=== PATIENT | male | born 1950 | race Caucasian/White ===

== ENCOUNTER 2016-08-02 14:58 | Inpatient (IN) | payer OTHER ==
[~2016-08-02] VITALS: Ht 172.7 cm; Wt 85.7 kg
[2016-08-02 15:45] VITALS: BP 110/69
[2016-08-02] MEDS ORDERED: ONDANSETRON PF 4 MG/2 ML VIAL. IV PRN (17:00)
[2016-08-02] MEDS ORDERED: LORazepam 0.5 MG TABLET PO PRN (17:00)
[2016-08-02 17:47] LABS: BASO # 0.1 x10^3/uL (0.0-0.2); BASO % 1 % (0-3); EOS % 7 % (0-3); HEMATOCRIT 35.9 % (39.0-53.0); HEMOGLOBIN 11.6 g/dL (13.0-17.5); LYMPH # 0.9 x10^3/uL (1.0-4.8); LYMPH % 13 % (24-48); MEAN CORPUSCULAR HEMOGLOBIN 28 pg (25-35); MEAN CORPUSCULAR HGB CONC 32 g/dL (31-37); MEAN CORPUSCULAR VOLUME 86 fL (79-100); MONO % 16 % (0-9); NEUT % 63 % (31-73); PLATELET COUNT 227 x10^3/uL (140-400); RED BLOOD COUNT 4.19 x10^6/uL (4.30-5.70); RED CELL DISTRIBUTION WIDTH 16.4 % (11.5-14.5); WHITE BLOOD COUNT 7.1 x10^3/uL (4.0-11.0)
[2016-08-02 17:59] LABS: CALCIUM 8.9 mg/dL (8.5-10.1); GFR 74.5; POTASSIUM 3.4 mmol/L (3.5-5.1)
[2016-08-02] MEDS: POTASSIUM CL 20MEQ-0.45% NACL 1,000 ML IV SCH (18:12)
[2016-08-02] MEDS: CARVEDILOL 6.25 MG TABLET. PO SCH (18:13)
[2016-08-02 19:00] VITALS: BP 107/67
[2016-08-02] MEDS ORDERED: ALBUTEROL SULFATE 2.5 MG/3 ML NEBU. NEB SCH (20:00)
[2016-08-02] MEDS: ATORVASTATIN CALCIUM 10 MG TABLET. PO SCH (21:15)
[2016-08-02] MEDS: buPROPion 100 MG TABLET PO SCH (21:16)
[2016-08-02 22:55] VITALS: BP 102/70
[2016-08-03 03:09] VITALS: BP 117/69
[2016-08-03 03:20] LABS: BILIRUBIN,URINE MODERATE (NEG); GLUCOSE,URINE NEGATIVE (NEG); NITRITE,URINE NEGATIVE (NEG); PROTEIN,URINE NEGATIVE (NEG-TRACE); UROBILINOGEN,URINE 0.2 mg/dL (0.2 mg/dL)
[2016-08-03 03:26] LABS: BACTERIA,URINE 0 /HPF (0-FEW); RBC,URINE 0 /HPF (0-2); WBC,URINE 0 /HPF (0-4)
[2016-08-03 03:27] LABS: SQUAMOUS EPITHELIAL CELL,UR OCC /LPF
[2016-08-03 07:00] VITALS: BP 108/63
[2016-08-03] MEDS: IPRATRPIUM/ALBUTEROL 0.5/2.5MG 3 ML NEBU. NEB SCH ×4 (07:19→19:49)
--- NOTE | 2016-08-03 07:21 | RAD ---
Left RIBS with chest, 3 views, 08/02/2016: History: Left-sided rib pain Moderate costochondral ossifications are present. No left rib fracture is identified. There is no evidence of underlying pneumothorax, hemothorax or pulmonary infiltrate. There is calcific plaquing of the aorta. IMPRESSION: No significant left rib abnormality is detected.
[2016-08-03] MEDS ORDERED: PANTOPRAZOLE 40 MG TABLET.DR. PO SCH (07:30)
[2016-08-03] MEDS: POTASSIUM CL 20MEQ-0.45% NACL 1,000 ML IV SCH (07:36)
[2016-08-03] MEDS ORDERED: POTASSIUM CHLORIDE 10 MEQ TABLET.ER. PO SCH (08:00)
[2016-08-03] MEDS ORDERED: ASPIRIN CHEWABLE 81 MG TABLET. PO SCH (08:00)
[2016-08-03] MEDS ORDERED: FUROSEMIDE 20 MG TABLET PO SCH (09:00)
[2016-08-03] MEDS ORDERED: FOLIC ACID 1 MG TABLET. PO SCH (09:00)
[2016-08-03] MEDS: CARVEDILOL 6.25 MG TABLET. PO SCH ×2 (09:33→17:53)
[2016-08-03] MEDS: PANTOPRAZOLE IV PUSH 40 MG VIAL. IVP SCH (09:34)
[2016-08-03] MEDS ORDERED: SODIUM CHLORIDE 0.65% NASAL SPRAY 45ML BOTTLE. NS PRN (09:45)
--- NOTE | 2016-08-03 09:50 | PDOC ---
OBJECTIVE Vital Signs Vital Signs Date Time Temp Pulse Resp B/P (MAP) Pulse Ox O2 Delivery O2 Flow Rate FiO2 08/03/16 09:33 82 108/63 08/03/16 07:19 99 Nasal Cannula 2.0 08/03/16 07:00 98.7 82 20 108/63 (78) 93 Nasal Cannula 2.0 98.7 08/03/16 03:09 98.2 80 18 117/69 (85) 96 Nasal Cannula 2.0 98.2 08/02/16 22:55 98.8 86 18 102/70 (81) 96 Nasal Cannula 2.0 98.8 08/02/16 20:00 Nasal Cannula 2.0 08/02/16 19:48 97 Nasal Cannula 2.0 08/02/16 19:00 97.9 90 18 107/67 (80) 97 Nasal Cannula 2.0 97.9 08/02/16 18:13 103 110/69 08/02/16 16:00 Nasal Cannula 2.0 08/02/16 15:45 97.7 103 18 110/69 (83) 97 Nasal Cannula 2.0 97.7 I & O Intake and Output 08/03/16 07:00 Intake Total 240 ml Output Total 175 ml Balance 65 ml Intake Oral 240 ml Output Urine Total 175 ml # Voids 3 # Bowel Movements 1 ASSESSMENT/PLAN Assessment/Plan 411110 H&P dictated Problems: COMMENT Lab Laboratory Tests Test 08/02/16 17:30 08/03/16 03:00 White Blood Count 7.1 x10^3/uL (4.0-11.0) Red Blood Count 4.19 x10^6/uL (4.30-5.70) Hemoglobin 11.6 g/dL (13.0-17.5) Hematocrit 35.9 % (39.0-53.0) Mean Corpuscular Volume 86 fL (79-100) Mean Corpuscular Hemoglobin 28 pg (25-35) Mean Corpuscular Hemoglobin Concent 32 g/dL (31-37) Red Cell Distribution Width 16.4 % (11.5-14.5) Platelet Count 227 x10^3/uL (140-400) Neutrophils (%) (Auto) 63 % (31-73) Lymphocytes (%) (Auto) 13 % (24-48) Monocytes (%) (Auto) 16 % (0-9) Eosinophils (%) (Auto) 7 % (0-3) Basophils (%) (Auto) 1 % (0-3) Neutrophils # (Auto) 4.4 x10^3uL (1.8-7.7) Lymphocytes # (Auto) 0.9 x10^3/uL (1.0-4.8) Monocytes # (Auto) 1.1 x10^3/uL (0.0-1.1) Eosinophils # (Auto) 0.5 x10^3/uL (0.0-0.7) Basophils # (Auto) 0.1 x10^3/uL (0.0-0.2) Sodium Level 136 mmol/L (136-145) Potassium Level 3.4 mmol/L (3.5-5.1) Chloride Level 97 mmol/L (98-107) Carbon Dioxide Level 27 mmol/L (21-32) Anion Gap 12 (6-14) Blood Urea Nitrogen 7 mg/dL (8-26) Creatinine 1.0 mg/dL (0.7-1.3) Estimated GFR (Cockcroft-Gault) 74.5 Glucose Level 61 mg/dL (70-99) Calcium Level 8.9 mg/dL (8.5-10.1) Urine Collection Type Unknown Urine Color Yellow Urine Clarity Clear Urine pH 6.0 Urine Specific [place] 1.010 Urine Protein Negative mg/dL (NEG-TRACE) Urine Glucose (UA) Negative mg/dL (NEG) Urine Ketones (Stick) 15 mg/dL (NEG) Urine Blood Negative (NEG) Urine Nitrite Negative (NEG) Urine Bilirubin Moderate (NEG) Urine Urobilinogen Dipstick 0.2 mg/dL (0.2 mg/dL) Urine Leukocyte Esterase Negative (NEG) Urine RBC 0 /HPF (0-2) Urine WBC 0 /HPF (0-4) Urine Squamous Epithelial Cells Occ /LPF Urine Bacteria 0 /HPF (0-FEW) Urine Mucus Slight /LPF JAMSHID FROST MD August 03, 2016 09:50
[2016-08-03 10:12] LABS: ALBUMIN 2.4 g/dL (3.4-5.0); ALBUMIN/GLOBULIN RATIO 1.3 (1.0-1.7); CALCIUM 8.1 mg/dL (8.5-10.1); CREATININE 0.9 mg/dL (0.7-1.3); GFR 84.2; TOTAL BILIRUBIN 0.3 mg/dL (0.2-1.0); TOTAL PROTEIN 4.3 g/dL (6.4-8.2)
--- NOTE | 2016-08-03 10:49 | HP ---
ADMIT DATE: 08/02/2016 LOCATION: Room 567. HISTORY OF PRESENT ILLNESS: The patient is a 66-year-old gentleman who presented to the office complaining of nausea, vomiting, and diarrhea for the last 3-4 days. He has been treated for pneumonia recently with antibiotics. He stated that he has not been feeling good since he got already pneumonia. He has lots of abdominal bloating and discomfort. He has been nauseated. He has not been eating. He also has been having periodic diarrhea. He does have to go to the bathroom every time he eats. He noticed that the smell of his stool also has been worse than usual. He also complains of pain in his left ribs area and pain in his back. He stated that he was moving to a new apartment about a week ago and even though he did not do too much, he was pushing on some furniture and had felt pain in his back. This has gotten worse, started in his lower back and now the whole back is bothering him. He does have previous history of chronic shortness of breath and he does use oxygen at times at home. He does have his own oximetry at home that he uses frequently. PAST MEDICAL HISTORY: Significant for autoimmune hemolytic anemia. He has been under the care of Hematology and recently had helped tremendously with this condition. Since that treatment, he has not required blood transfusion, which he has been requiring ____ frequently before ____ when he was on steroids only. He does also have a history of congestive heart failure. He was hospitalized at [facility] for heart failure and pneumonia. He also was seen in the office with continuous pneumonia and had another round of antibiotics, all that was just about a month ago. He does have a history of pulmonary scarring and fibrosis, history of hyperlipidemia, hypertension, COPD, bronchitis, pneumonia, gastroesophageal reflux disease, previous history of gout, urinary retention, back pain, as I mentioned above, history of cataracts and cataract surgery, history of depression and anxiety. SOCIAL HISTORY: He quit smoking 24 years ago. He does not drink alcohol. He does not use drugs. He was living with friends for a while due to his health condition, who are helping him and recently, he moved to his own apartment about a week ago. He has received influenza and pneumococcal vaccine. REVIEW OF SYSTEMS: HEENT: Positive for some congestion. He does have some drainage out of his right eye, which is matting every morning recently. He denies sore throat. RESPIRATORY: He does have mild shortness of breath, minimal cough, no increasing shortness of breath. CARDIOVASCULAR: Denies chest pain. GASTROINTESTINAL: He does have nausea, vomiting, and diarrhea as mentioned above. GENITOURINARY: He does have urinary retention in the past, but is doing fairly okay at present time. He denies hematuria or dysuria. MUSCULOSKELETAL: He does have pain in the left ribs area and back as mentioned in the HPI. NEUROLOGY: He denies headache or any focal changes or deficits. PHYSICAL EXAMINATION: GENERAL: He is alert and oriented and cooperative, in no acute distress. HEENT: His tympanic membranes clear. His pharynx clear. Mucous membranes are dry. He does have erythema in his right conjunctiva with matting in the corner of his eyes. He does not have sinus tenderness at present time. NECK: Supple, with no JVD. LUNGS: With decreased breath sounds. No wheezing and no rhonchi. HEART: Regular rate and rhythm. ABDOMEN: Soft. He does have tenderness in the epigastric left upper quadrant area, also tenderness in the lower abdominal area bilaterally. No rebound, no guarding, no masses, no bruits, no ascites. EXTREMITIES: No edema, clubbing, or cyanosis. He does have evidence of onychomycosis on his toes. Peripheral pulses are +1. IMPRESSION: 1. Acute gastroenteritis and possible Clostridium difficile colitis with recent use of antibiotics and persistent diarrhea. The patient is admitted for hydration, started on IV Flagyl since he has not been able to take any of his medications p.o. at home. 2. Hypokalemia, replacing. 3. Back pain and left ribs pain after a trauma while moving. We will obtain x-rays and ask Physical Therapy to evaluate. 4. Congestive heart failure. He is being hydrated very carefully. 5. Recent history of pneumonia. 6. Hypertension, hypertensive cardiovascular disease. 7. Hyperlipidemia. 8. Gastroesophageal reflux disease. 9. Conjunctivitis. 10. Depression and anxiety. 11. History of autoimmune hemolytic anemia which seemed to be stable at present time. JAMSHID FROST MD DR: DIANA/jenny JOB#: [id number] / [id number]
[2016-08-03 11:00] VITALS: BP 108/68
--- NOTE | 2016-08-03 11:17 | RAD ---
Indication left upper quadrant pain. Examination was targeted to the spleen. Grayscale images were obtained. The spleen measures approximately 12 x 7.4 x 13 cm. No splenic mass was seen. No definite perisplenic fluid was seen. If further evaluation of the abdomen is warranted a CT examination could be obtained IMPRESSION: Mild splenomegaly.
--- NOTE | 2016-08-03 11:19 | RAD ---
Lumbar spine, 3 views, 08/03/2016: History: Back pain The lumbar vertebral heights are well-maintained. The intervertebral disc spaces are well preserved. There are mild scattered marginal spurs. There are mild sclerotic changes involving the facet joints in the lower lumbar spine. Moderate aortic calcific plaquing is present. IMPRESSION: 1. Mild scattered degenerative changes. 2. No acute bony abnormality is detected.
--- NOTE | 2016-08-03 11:21 | RAD ---
Indication pain. AP and lateral views of the thoracic spine were obtained as well as a swimmer's view. No acute finding is seen. Significant degenerative changes are not apparent on plain films.
[2016-08-03] MEDS: SUCRALFATE 1 GM TABLET. PO SCH ×3 (11:48→21:18)
[2016-08-03] MEDS: GENTAMICIN 0.3% OPHTH OINTMENT 3.5GM TUBE. OU SCH ×2 (11:50→21:18)
[2016-08-03 15:00] VITALS: BP 111/65
[2016-08-03] MEDS ORDERED: POTASSIUM CHLORIDE 20 MEQ TABLET.ER. PO ONE (15:15)
[2016-08-03 19:00] VITALS: BP 105/63
[2016-08-03] MEDS: buPROPion 100 MG TABLET PO SCH ×2 (21:00→21:26)
[2016-08-03] MEDS: metroNIDAZOLE 500 MG TABLET PO SCH (21:17)
[2016-08-03] MEDS: ATORVASTATIN CALCIUM 10 MG TABLET. PO SCH (21:18)
[2016-08-03] MEDS ORDERED: LORazepam 0.5 MG TABLET PO PRN (22:45)
[2016-08-03 23:00] VITALS: BP_SYST 107
[2016-08-04 05:07] LABS: HEMATOCRIT 32.2 % (39.0-53.0); HEMOGLOBIN 10.5 g/dL (13.0-17.5); RED BLOOD COUNT 3.78 x10^6/uL (4.30-5.70); WHITE BLOOD COUNT 5.2 x10^3/uL (4.0-11.0)
[2016-08-04 05:32] LABS: CALCIUM 8.2 mg/dL (8.5-10.1); CREATININE 0.8 mg/dL (0.7-1.3); GFR 96.4; POTASSIUM 3.1 mmol/L (3.5-5.1)
[2016-08-04] MEDS: SUCRALFATE 1 GM TABLET. PO SCH ×2 (05:59→11:50)
[2016-08-04] MEDS: PANTOPRAZOLE IV PUSH 40 MG VIAL. IVP SCH (06:43)
[2016-08-04 07:00] VITALS: BP 120/71
[2016-08-04] MEDS: IPRATRPIUM/ALBUTEROL 0.5/2.5MG 3 ML NEBU. NEB SCH ×3 (08:00→15:30)
[2016-08-04] MEDS: metroNIDAZOLE 500 MG TABLET PO SCH (08:51)
[2016-08-04] MEDS: buPROPion 100 MG TABLET PO SCH (08:51)
[2016-08-04] MEDS: CARVEDILOL 6.25 MG TABLET. PO SCH (08:52)
[2016-08-04] MEDS ORDERED: POTASSIUM CHLORIDE 20 MEQ TABLET.ER. PO ONE (09:00)
[2016-08-04] MEDS ORDERED: metroNIDAZOLE 500 MG TABLET PO SCH (09:00)
[2016-08-04] MEDS ORDERED: VANC125C10 PO (10:28)
[2016-08-04] MEDS ORDERED: LORA0.5T96 PO (10:28)
[2016-08-04] MEDS ORDERED: CARV6.252 PO (10:28)
[2016-08-04] MEDS ORDERED: BUPR100T11 PO (10:28)
[2016-08-04] MEDS ORDERED: GUAI600T38 PO (10:28)
[2016-08-04] MEDS ORDERED: ASPI81TA2 PO (10:28)
[2016-08-04] MEDS ORDERED: ONDA4TAB7 PO (10:28)
[2016-08-04] MEDS ORDERED: FURO20TA3 PO (10:28)
[2016-08-04] MEDS ORDERED: GENTAMICIN 0.3% OU (10:28)
[2016-08-04] MEDS ORDERED: POTA10TA12 PO (10:28)
[2016-08-04] MEDS ORDERED: IPRA3AMP NEB (10:28)
[2016-08-04] MEDS ORDERED: SUCR1TAB29 PO (10:28)
[2016-08-04] MEDS ORDERED: ATOR10TA60 PO (10:28)
[2016-08-04] MEDS ORDERED: FOLI1TAB16 PO (10:28)
[2016-08-04] MEDS ORDERED: CHOL4POW11 PO (10:29)
[2016-08-04] MEDS: GENTAMICIN 0.3% OPHTH OINTMENT 3.5GM TUBE. OU SCH ×2 (10:48→14:00)
[2016-08-04 10:55] VITALS: BP 122/69
[2016-08-04] MEDS ORDERED: CHOLESTYRAMINE/ASPARTAME 4 GM PACKET PO SCH (11:00)
--- NOTE | 2016-08-04 11:56 | PDOC ---
SUBJECTIVE Subjective still diarrhea, may be better, vomited once yesterday, ok this AM OBJECTIVE Vital Signs Vital Signs Date Time Temp Pulse Resp B/P (MAP) Pulse Ox O2 Delivery O2 Flow Rate FiO2 08/04/16 11:13 Nasal Cannula 1.0 08/04/16 10:55 97.9 65 122/69 (86) 97 Nasal Cannula 2.0 97.9 08/04/16 08:53 96 Nasal Cannula 1.0 08/04/16 08:52 64 120/71 08/04/16 08:00 Nasal Cannula 1.0 08/04/16 07:00 97.9 64 20 120/71 (87) 97 Nasal Cannula 2.0 97.9 08/03/16 23:00 97.8 83 20 107/ 98 Nasal Cannula 2.0 97.8 08/03/16 20:00 Nasal Cannula 1.0 08/03/16 19:49 98 Nasal Cannula 1.0 08/03/16 19:00 98.4 85 22 105/63 (77) 95 Nasal Cannula 2.0 98.4 08/03/16 17:53 86 120/66 08/03/16 15:46 97 Nasal Cannula 1.0 08/03/16 15:00 98.1 84 20 111/65 (80) 94 Nasal Cannula 2.0 98.1 I & O Intake and Output 08/04/16 07:00 Intake Total 950 ml Output Total 1275 ml Balance -325 ml IV Total 950 ml Output Urine Total 975 ml Stool Total 300 ml # Bowel Movements 3 PHYSICAL EXAM Physical Exam lung clear heart RRR abd less tender, soft +BS ext no edema ASSESSMENT/PLAN Assessment/Plan his Cdiff is neg, but continues with diarrhea, anxious to go home , would like to continue vancocin P.O any way replace K+, stool studies and F/U out pt since he was hydrated and anxious to go home due to ride and dog, home health will continue to follow him Problems: COMMENT Lab Laboratory Tests Test 08/04/16 04:45 White Blood Count 5.2 x10^3/uL (4.0-11.0) Red Blood Count 3.78 x10^6/uL (4.30-5.70) Hemoglobin 10.5 g/dL (13.0-17.5) Hematocrit 32.2 % (39.0-53.0) Mean Corpuscular Volume 85 fL (79-100) Mean Corpuscular Hemoglobin 28 pg (25-35) Mean Corpuscular Hemoglobin Concent 33 g/dL (31-37) Red Cell Distribution Width 17.0 % (11.5-14.5) Platelet Count 199 x10^3/uL (140-400) Sodium Level 137 mmol/L (136-145) Potassium Level 3.1 mmol/L (3.5-5.1) Chloride Level 102 mmol/L (98-107) Carbon Dioxide Level 26 mmol/L (21-32) Anion Gap 9 (6-14) Blood Urea Nitrogen 3 mg/dL (8-26) Creatinine 0.8 mg/dL (0.7-1.3) Estimated GFR (Cockcroft-Gault) 96.4 Glucose Level 93 mg/dL (70-99) Calcium Level 8.2 mg/dL (8.5-10.1) JAMSHID FROST MD August 04, 2016 11:56
--- NOTE | 2016-08-04 12:00 | PDOC3 ---
Discharge Summary* Date of Admission: August 02, 2016 Date of Discharge: August 04, 2016 Final Diagnosis 1. Acute gastroenteritis and possible Clostridium difficile colitis with recent use of antibiotics and persistent diarrhea. 2. Hypokalemia, replacing. 3. Back pain and left ribs pain after a trauma while moving. No fx on x ray 4. Congestive heart failure. compensated 5. Recent history of pneumonia. 6. Hypertension, hypertensive cardiovascular disease. 7. Hyperlipidemia. 8. Gastroesophageal reflux disease. 9. Conjunctivitis. 10. Depression and anxiety. 11. History of autoimmune hemolytic anemia which seemed to be stable at present time. Procedures CXR, rib xray, L spine xray, T spine Xray, LUQ US showed mild splenomegaly Brief Hospital Course Mr. Felder is a 66 old [sex] who presented with [ ] Disposition/Orders: D/C to Home w/ HH CONDITION AT DISCHARGE: Stable Diet: other (as tolerated ) Scheduled Aspirin (Aspirin), 81 MG PO DAILYWBKFT Atorvastatin Calcium (Atorvastatin Calcium), 5 MG PO QHS Bupropion Hcl (Bupropion Hcl), 150 MG PO BID Carvedilol (Carvedilol), 6.25 MG PO BIDWMEALS Cholestyramine (With Sugar) (Questran Packet), 4 GM PO TID Folic Acid (Folic Acid), 1 MG PO DAILY Furosemide (Furosemide), 20 MG PO DAILY Guaifenesin (Mucinex), 600 MG PO BID Ipratropium/Albuterol Sulfate (Duoneb 0.5-3(2.5) Mg/3 Ml), 3 ML NEB RTQID Ondansetron Hcl (Zofran), 1 TAB PO Q8HRS Potassium Chloride (Klor-Con M10), 10 MEQ PO DAILYWBKFT Sucralfate (Carafate), 1 GM PO QIDACHS Vancomycin Hcl (Vancocin Hcl), 125 MG PO QID [Gentamicin 0.3% Ophth], 0.25 INCH OU TID Scheduled PRN Lorazepam (Ativan), 0.5 MG PO PRN Q6HRS PRN for ANXIETY / AGITATION FOLLOW UP APPOINTMENT: Dr Frost 1week Time Spent Total time spent with patient [] minutes for coordination of care, counseling, and education. JAMSHID FROST MD August 04, 2016 12:00
[2016-08-04 15:16] VITALS: BP 123/68
== END 2016-08-04 17:02 | disposition home or self-care (01) | DRG 371 ==
LOC: 5 SOUTH 15:07
PROVIDERS: ADMIT Internal Medicine; ATTEND Internal Medicine
DX: A04.7 Enterocolitis due to Clostridium difficile (principal); E43 Unspecified severe protein-calorie malnutrition; F32.9 Major depressive disorder, single episode, unspecified; E87.6 Hypokalemia; F41.9 Anxiety disorder, unspecified; E78.5 Hyperlipidemia, unspecified; H10.9 Unspecified conjunctivitis; I11.0 Hypertensive heart disease with heart failure; I50.9 Heart failure, unspecified; M54.9 Dorsalgia, unspecified; J44.9 Chronic obstructive pulmonary disease, unspecified; K21.9 Gastro-esophageal reflux disease without esophagitis; M10.9 Gout, unspecified; Z87.01 Personal history of pneumonia (recurrent); Z87.891 Personal history of nicotine dependence
CPT/HCPCS: 36415; 71101; 72072; 72100; 76705; 80048; 80053; 81001; 85027; 87045; 87324; 94250; 94640; 94760; C9113; J3490; J7620